=== PATIENT | female | born 1990 | race Hispanic/Latino ===

== ENCOUNTER 2022-02-13 08:22 | Outpatient (CLI) | payer BC | END 2022-02-13 08:23 | disposition home or self-care (01) | LOC: BICULT 08:22 | PROVIDERS: ATTEND Family Medicine | DX: R17 Unspecified jaundice (principal); R74.01 Elevation of levels of liver transaminase levels; K76.0 Fatty (change of) liver, not elsewhere classified; K82.4 Cholesterolosis of gallbladder | CPT/HCPCS: 76705 ==